=== PATIENT | male | born 2000 | race Caucasian/White ===

== ENCOUNTER 2023-09-05 03:54 | Emergency (ER) | payer BC, SELFPAY ==
[~2023-09-05] VITALS: Ht 160 cm; Wt 68.6 kg
[2023-09-05 04:22] LABS: BASO # 0.1 10^3/uL (0.0-0.2); BASO % 0.4 % (0.0-1.0); EOS % 0.2 % (0.0-3.0); HEMATOCRIT 49.6 % (42.0-52.0); LYMPH # 0.4 10^3/uL (1.5-5.0); LYMPH % 2.6 % (24.0-44.0); MEAN CORPUSCULAR HEMOGLOBIN 31.8 pg (27.0-33.0); MEAN CORPUSCULAR HGB CONC 36.3 g/dl (32.0-36.5); MEAN CORPUSCULAR VOLUME 87.6 fl (80.0-96.0); MONO % 6.3 % (2.0-8.0); NEUTROPHILS # 14.6 10^3/uL (1.5-8.5); NEUTROPHILS % 89.9 % (36.0-66.0); PLATELET COUNT, AUTOMATED 237 10^3/uL (150-450); RED BLOOD COUNT 5.66 10^6/uL (4.30-6.10); WHITE BLOOD COUNT 16.3 10^3/uL (4.0-10.0)
[2023-09-05 04:46] LABS: LIPASE 25 U/L (12-53)
[2023-09-05 04:48] LABS: ALBUMIN 4.2 G/DL (3.2-5.2); ALKALINE PHOSPHATASE 79 U/L (46-116); ALT/SGPT 39 U/L (7.0-40); AST/SGOT 23 U/L (<34); BILIRUBIN,DIRECT 0.4 MG/DL (<0.4); BILIRUBIN,TOTAL 1.3 MG/DL (0.3-1.2); BLOOD UREA NITROGEN 24 MG/DL (9-23); CALCIUM LEVEL 8.8 MG/DL (8.5-10.1); CARBON DIOXIDE LEVEL 24 MMOL/L (20-31); CHLORIDE LEVEL 103 MMOL/L (98-107); CREATININE FOR GFR 0.91 MG/DL (0.70-1.30); GLOMERULAR FILTRATION RATE > 60.0 (>60); GLUCOSE, FASTING 135 MG/DL (60-100); POTASSIUM SERUM 4.1 MMOL/L (3.5-5.1); SODIUM LEVEL 135 MMOL/L (136-145); TOTAL PROTEIN 7.2 G/DL (5.7-8.2)
[2023-09-05] MEDS ORDERED: NS 1,000 ML IV ONE (07:05)
[2023-09-05] MEDS ORDERED: ISOVUE-370 76% 100ML VIAL As Ordered ONE (07:14)
[2023-09-05] MEDS: ONDANSETRON 4MG 2ML VIAL IV ONE (07:26)
[2023-09-05] MEDS: NS 2,060 ML in IV 1 EA IV ONE (07:49)
[2023-09-05] MEDS: ACETAMINOPHEN *IV* 1,000 MG in IV 1 EA IV ONE (07:50)
[2023-09-05] MEDS ORDERED: ONDA4TAB6 PO (08:38)
[2023-09-05 10:48] VITALS: BP 121/69; TEMP 98.8; O2SAT 96
== END 2023-09-05 10:51 | disposition home or self-care (01) ==
LOC: M ED 03:54
DX: R10.9 Unspecified abdominal pain (principal); R11.2 Nausea with vomiting, unspecified; R00.0 Tachycardia, unspecified
CPT/HCPCS: 74177; 80053; 81001; 82248; 83690; 85025; 87486; 87581; 87633; 87798; 96365; 96375; 99284; J0131; J2405; Q9967